=== PATIENT | female | born 1955 | race Caucasian/White ===

== ENCOUNTER 2018-07-06 14:50 | Emergency (ER) | payer MEDICARE ==
[2018-07-06] MEDS ORDERED: MOTRIN 600 MG PO ONE (15:18)
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
[2018-07-06] MEDS ORDERED: MOTRIN 600 MG ONE (15:28)
--- NOTE | 2018-07-06 15:59 | XRAY ---
Indication: Frontal temporal head injury following fall 1 week ago. Multiple contiguous axial images obtained through the head without contrast. Comparison: None Age-appropriate global atrophy and minimal periventricular degenerative micro-ischemia bilaterally. Left frontal lobe demonstrates a focus of encephalomalacia from old infarct. No acute intracranial hemorrhage, hydrocephalus, or mass effect. Bony calvarium intact. Visualized paranasal sinuses and mastoid air cells are clear. 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 CT DI 49.26
--- NOTE | 2018-07-06 16:04 | XRAY ---
Indication: Head injury following fall 1 week ago. Multiple contiguous axial images obtained through the cervical spine. Sagittal and coronal reformatted images obtained. Comparison: None Axial images negative for acute fracture, suspicious bony lesions, or spinal canal stenosis. Mild/moderate C5-C7 degenerative endplate spurring. Sagittal and coronal reformatted images demonstrates cervical lordotic straightening, positional versus paraspinal spasm. Mild C5-C7 disc space narrowing. No acute compression fracture, subluxation, or jumped facet. Normal appearing craniocervical junction. Visualized noncontrasted soft tissues demonstrates minimal carotid calcifications bilaterally. Lung apices clear. CT head reported separately. Impression: 1. Negative acute fracture/subluxation. Cervical lordotic straightening, positional versus paraspinal spasm. 2. C5-C7 degenerative changes. CT DI 60.30
[2018-07-06 16:16] VITALS: BP 198/86; PULSE 76; O2SAT 98
== END 2018-07-06 16:23 | disposition home or self-care (01) ==
LOC: ED 14:50
DX: S00.93XA Contusion of unspecified part of head, initial encounter (principal); R51 Headache; S16.1XXA Strain of muscle, fascia and tendon at neck level, initial encounter; M25.562 Pain in left knee; M54.2 Cervicalgia; W10.2XXA Fall (on)(from) incline, initial encounter; Y93.01 Activity, walking, marching and hiking; Y92.240 Courthouse as the place of occurrence of the external cause
CPT/HCPCS: 70450; 72125; 73562; 82962; 93005; 99284; A9270-GY

== ENCOUNTER 2018-08-30 19:10 | Emergency (ER) | payer MEDICARE ==
--- NOTE | 2018-08-30 19:37 | ERPHSYRPT ---
- History of Present Illness Time Seen by Provider: 08/30/18 19:37 Source: patient, family Patient Subjective Stated Complaint: c/o weakness, sob and unable to eat. Diarrhea, vomiting off and on for a week. Triage Nursing Assessment: pt brought back via wc, assisted to bed by 1, skin pink, warm dry, aeto x3, c/o weakness x 1 week, states, "I'm having trouble breathing", lungs clear throughout, abd soft, nontender, bs x4. Pt denies any pain. Physician History: 63 y/o obese white female with h/o copd presents with one week h/o weakness and mild soa. denies cp and denies abd pain. however, she has had a few episodes of n/v/d. never had this before. pt not eating or drinking well. Timing/Duration: week(s) (1) Severity: mild Associated Symptoms: nausea, vomiting, shortness of breath (mild chronic), loss of appetite, weakness, No chest pain Allergies/Adverse Reactions: No Known Drug Allergies Allergy (Verified 08/30/18 19:30) Hx Tetanus, Diphtheria Vaccination/Date Given: No Hx Influenza Vaccination/Date Given: Yes Hx Pneumococcal Vaccination/Date Given: No Immunizations Up to Date: Yes - Review of Systems Constitutional: Weakness Eyes: No Symptoms Ears, Nose, & Throat: No Symptoms Respiratory: No Symptoms, No Cough, No Dyspnea, No Stridor, No Wheezing Cardiac: No Symptoms, No Chest Pain, No Palpitations, No Syncope Abdominal/Gastrointestinal: Nausea, Vomiting, Diarrhea, Appetite Changes, No Abdominal Pain Genitourinary Symptoms: No Symptoms, No Dysuria, No Frequency, No Hematuria Musculoskeletal: No Symptoms Skin: No Symptoms Neurological: No Symptoms Psychological: No Symptoms Endocrine: No Symptoms Hematologic/Lymphatic: No Symptoms Immunological/Allergic: No Symptoms All Other Systems: Reviewed and Negative - Past Medical History Pertinent Past Medical History: Yes Neurological History: No Pertinent History ENT History: No Pertinent History Cardiac History: No Pertinent History Respiratory History: COPD Endocrine Medical History: No Pertinent History Musculoskeletal History: No Pertinent History GI Medical History: No Pertinent History History: No Pertinent History Psycho-Social History: No Pertinent History Female Reproductive Disorders: No Pertinent History Other Medical History: copd, - Past Surgical History Past Surgical History: Yes Neuro Surgical History: No Pertinent History Cardiac: No Pertinent History Respiratory: No Pertinent History Gastrointestinal: No Pertinent History Genitourinary: No Pertinent History Musculoskeletal: Joint Replacement Female Surgical History: Hysterectomy Other Surgical History: left knee. hysterectomy - Social History Smoking Status: Former smoker How long have you smoked: 20 Exposure to second hand smoke: No Drug Use: none Patient Lives Alone: No - Female History Hx Last Menstrual Period: 2001 Hx Now: No - Nursing Vital Signs Nursing Vital Signs: Initial Vital Signs Temperature 97.7 F 08/30/18 19:13 Pulse Rate 70 08/30/18 19:13 Respiratory Rate 20 08/30/18 19:13 Blood Pressure 186/81 08/30/18 19:13 O2 Sat by Pulse Oximetry 98 08/30/18 19:13 Pain Scale Pain Intensity 0 - Physical Exam General Appearance: no apparent distress, alert, anxiety Eye Exam: PERRL/EOMI Ears, Nose, Throat Exam: normal ENT inspection, moist mucous membranes Neck Exam: normal inspection, non-tender, supple, full range of motion Respiratory Exam: normal breath sounds, lungs clear, airway intact, No chest tenderness, No respiratory distress, No accessory muscle use, No rhonchi, No wheezing, No stridor Cardiovascular Exam: regular rate/rhythm, normal heart sounds, normal peripheral pulses Gastrointestinal/Abdomen Exam: soft, normal bowel sounds, No tenderness, No guarding, No rebound Pelvic Exam: not done Rectal Exam: not done Back Exam: normal inspection, normal range of motion, No CVA tenderness, No vertebral tenderness Extremity Exam: normal inspection, normal range of motion, pelvis stable Neurologic Exam: alert, oriented x 3, cooperative, personal injury specialist II-XII nml as tested Skin Exam: normal color, warm Lymphatic Exam: adenopathy SpO2 Interpretation: normal SpO2: 98 O2 Delivery: Room Air - Course Nursing assessment & vital signs reviewed: Yes EKG Interpreted by Me: RATE (62), Sinus Rhythm, NORMAL AXIS, NORMAL INTERVALS, Non-specific ST Changes, Other (comparison ekg 07/06/18 no changes.) Ordered Tests: Active Orders 24 hr Category Date Time Status ACCUCHECK [Accucheck] STAT Care 08/30/18 19:29 Active Dog License Officer Supervisor STAT Care 08/30/18 19:30 Active EKG-ER Only STAT Care 08/30/18 19:29 Active IV Insertion STAT Care 08/30/18 19:29 Active Pulse Oximetry (ED) STAT Care 08/30/18 19:44 Active CHEST 1 VIEW (PORTABLE) Stat Exams 08/30/18 20:19 Ordered CBC W DIFF Stat Lab 08/30/18 20:00 Completed CMP Stat Lab 08/30/18 20:00 Completed CULTURE,URINE Stat Lab 08/30/18 20:20 Received [place] Screen Stat Lab 08/30/18 20:00 Completed NT PRO BNP Stat Lab 08/30/18 20:00 Completed TROPONIN Q3H Lab 08/30/18 20:00 Completed TROPONIN Q3H Lab 08/30/18 22:45 Ordered TROPONIN Q3H Lab 08/31/18 01:45 Ordered TROPONIN Q3H Lab 08/31/18 04:45 Ordered TROPONIN Q3H Lab 08/31/18 07:45 Ordered UA W/RFX UR CULTURE Stat Lab 08/30/18 20:20 Completed Medication Summary Generic Name Dose Route Start Last Admin Trade Name Freq PRN Reason Stop Dose Admin Ceftriaxone Sodium/Dextrose 1 g in 50 mls @ 100 mls/hr 08/30/18 20:58 Rocephin 1 Gm-D5w 50 Ml Bag IV 08/30/18 21:27 STAT STA Discontinued Medications Generic Name Dose Route Start Last Admin Trade Name Freq PRN Reason Stop Dose Admin Sodium Chloride 1,000 mls @ 999 mls/hr 08/30/18 19:44 08/30/18 20:52 Sodium Chloride 0.9% 1000 Ml IV 08/30/18 20:44 Infused .Q1H1M STA Infusion Sodium Chloride Confirm 08/30/18 19:48 Sodium Chloride 0.9% 1000 Ml Administered 08/30/18 19:49 Dose 1,000 mls @ ud .ROUTE .K-MED ONE Lab/Rad Data: Laboratory Result Diagrams 08/30/18 20:00 08/30/18 20:00 Laboratory Results 08/30/18 08/30/18 08/30/18 Range/Units 20:20 20:00 20:00 WBC (4.0-10.5) K/mm3 RBC (4.1-5.4) M/mm3 Hgb (12.0-16.0) gm/dl Hct (35-47) % MCV (78-100) fl MCH (26-32) pg MCHC (32-36) g/dl RDW (11.5-14.0) % Plt Count (150-450) K/mm3 MPV (6-9.5) fl Gran % (36.0-66.0) % Eos # (Auto) (0-0.5) Absolute Lymphs (auto) (1.0-4.6) Absolute Monos (auto) (0.0-1.3) Lymphocytes % (24.0-44.0) % Monocytes % (0.0-12.0) % Eosinophils % (0.00-5.0) % Basophils % (0.0-0.4) % Absolute Granulocytes (1.4-6.9) Basophils # (0-0.4) Sodium (137-145) mmol/L Potassium (3.5-5.1) mmol/L Chloride (98-107) mmol/L Carbon Dioxide (22-30) mmol/L Anion Gap (5-15) MEQ/L BUN (7-17) mg/dL Creatinine (0.52-1.04) mg/dL Estimated GFR ML/MIN Glucose (74-106) mg/dL Calcium (8.4-10.2) mg/dL Total Bilirubin (0.2-1.3) mg/dL AST (14-36) U/L ALT (0-35) U/L Alkaline Phosphatase (38-126) U/L Troponin I < 0.012 (0.000-0.034) ng/mL NT-Pro-B Natriuret Pep (0-900) pg/mL Serum Total Protein (6.3-8.2) g/dL Albumin (3.5-5.0) g/dL Urine Color STRAW (YELLOW) Urine Appearance CLEAR (CLEAR) Urine pH 6.0 (5-6) Ur Specific [place] 1.014 (1.005-1.025) Urine Protein NEGATIVE (Negative) Urine Ketones NEGATIVE (NEGATIVE) Urine Blood NEGATIVE (0-5) Markie/ul Urine Nitrite NEGATIVE (NEGATIVE) Urine Bilirubin NEGATIVE (NEGATIVE) Urine Urobilinogen NEGATIVE (0-1) mg/dL Ur Leukocyte Esterase MODERATE (NEGATIVE) Urine WBC (Auto) 26-50 (0-5) /HPF Urine RBC (Auto) 3-5 (0-2) /HPF U Epithel Cells (Auto) FEW (FEW) /HPF Urine Bacteria (Auto) MODERATE (NEGATIVE) /HPF Urine Culture Reflexed YES (NO) Urine Glucose NEGATIVE (NEGATIVE) mg/dL Monoscreen NEGATIVE (Negative) 08/30/18 08/30/18 Range/Units 20:00 20:00 WBC 9.1 (4.0-10.5) K/mm3 RBC 4.20 (4.1-5.4) M/mm3 Hgb 12.6 (12.0-16.0) gm/dl Hct 39.8 (35-47) % MCV 94.8 (78-100) fl MCH 30.0 (26-32) pg MCHC 31.7 L (32-36) g/dl RDW 13.9 (11.5-14.0) % Plt Count 212 (150-450) K/mm3 MPV 9.8 H (6-9.5) fl Gran % 53.6 (36.0-66.0) % Eos # (Auto) 0.06 (0-0.5) Absolute Lymphs (auto) 3.35 (1.0-4.6) Absolute Monos (auto) 0.75 (0.0-1.3) Lymphocytes % 37.0 (24.0-44.0) % Monocytes % 8.3 (0.0-12.0) % Eosinophils % 0.7 (0.00-5.0) % Basophils % 0.4 (0.0-0.4) % Absolute Granulocytes 4.86 (1.4-6.9) Basophils # 0.04 (0-0.4) Sodium 141 (137-145) mmol/L Potassium 4.3 (3.5-5.1) mmol/L Chloride 105 (98-107) mmol/L Carbon Dioxide 29 (22-30) mmol/L Anion Gap 11.9 (5-15) MEQ/L BUN 14 (7-17) mg/dL Creatinine 0.90 (0.52-1.04) mg/dL Estimated GFR > 60.0 ML/MIN Glucose 96 (74-106) mg/dL Calcium 8.6 (8.4-10.2) mg/dL Total Bilirubin 0.30 (0.2-1.3) mg/dL AST 17 (14-36) U/L ALT 23 (0-35) U/L Alkaline Phosphatase 97 (38-126) U/L Troponin I (0.000-0.034) ng/mL NT-Pro-B Natriuret Pep 533 (0-900) pg/mL Serum Total Protein 6.2 L (6.3-8.2) g/dL Albumin 3.5 (3.5-5.0) g/dL Urine Color (YELLOW) Urine Appearance (CLEAR) Urine pH (5-6) Ur Specific [place] (1.005-1.025) Urine Protein (Negative) Urine Ketones (NEGATIVE) Urine Blood (0-5) Markie/ul Urine Nitrite (NEGATIVE) Urine Bilirubin (NEGATIVE) Urine Urobilinogen (0-1) mg/dL Ur Leukocyte Esterase (NEGATIVE) Urine WBC (Auto) (0-5) /HPF Urine RBC (Auto) (0-2) /HPF U Epithel Cells (Auto) (FEW) /HPF Urine Bacteria (Auto) (NEGATIVE) /HPF Urine Culture Reflexed (NO) Urine Glucose (NEGATIVE) mg/dL Monoscreen (Negative) - Progress Progress: improved Counseled pt/family regarding: lab results, diagnosis, need for follow-up, rad results - Departure Time of Disposition: 21:00 Departure Disposition: Home Clinical Impression: UTI (urinary tract infection), Diarrhea, Colitis Condition: Stable Critical Care Time: No Referrals: MARY MAYS MD [Primary Care Provider] - Additional Instructions: drink plenty of fluid. take medications as prescribed. follow up with primary doctor for further management Prescriptions: Ciprofloxacin [Cipro 500 MG] 500 mg PO BID #14 tablet Metronidazole 500 mg [Flagyl 500 MG] 500 mg PO TID #21 tablet Ondansetron HCl [Zofran] 4 mg PO TID PRN #10 tablet PRN Reason: Nausea/Vomiting
[2018-08-30] MEDS ORDERED: Sodium Chloride 0.9% 1000 ML 1,000 ML IV STA (19:44)
[2018-08-30] MEDS ORDERED: Sodium Chloride 0.9% 1000 ML 1,000 ML ONE (19:48)
[2018-08-30 20:05] LABS: BASOPHIL % 0.4 % (0.0-0.4); Basophil (Absolute #) 0.04 (0-0.4); Eosinophil % 0.7 % (0.00-5.0); Eosinophil (Absolute #) 0.06 (0-0.5); Granulocyte Absolute (ANC) 4.86 (1.4-6.9); Granulocytes % 53.6 % (36.0-66.0); Hematocrit 39.8 % (35-47); Hemoglobin 12.6 gm/dl (12.0-16.0); Lymphocyte (Absolute #) 3.35 (1.0-4.6); Mean Cell Volume 94.8 fl (78-100); Mean Corpuscular Hgb Concent. 31.7 g/dl (32-36); Mean Platelet Volume 9.8 fl (6-9.5); Monocyte (Absolute #) 0.75 (0.0-1.3); Monocytes % 8.3 % (0.0-12.0); Platelet Count 212 K/mm3 (150-450); Red Cell Distribution Width 13.9 % (11.5-14.0); White Blood Count 9.1 K/mm3 (4.0-10.5)
[2018-08-30 20:36] LABS: ALBUMIN 3.5 g/dL (3.5-5.0); ALKALINE PHOSPHATASE 97 U/L (38-126); ANION GAP 11.9 MEQ/L (5-15); BLOOD UREA NITROGEN 14 mg/dL (7-17); CHLORIDE 105 mmol/L (98-107); Calcium 8.6 mg/dL (8.4-10.2); Carbon Dioxide 29 mmol/L (22-30); Glucose 96 mg/dL (74-106); NT PRO BNP 533 pg/mL (0-900); Potassium 4.3 mmol/L (3.5-5.1); SGOT/AST 17 U/L (14-36); SGPT/ALT 23 U/L (0-35); SODIUM 141 mmol/L (137-145); Total Protein 6.2 g/dL (6.3-8.2)
[2018-08-30 20:48] LABS: Appearance CLEAR (CLEAR); Bacteria MODERATE /HPF (NEGATIVE); Bilirubin NEGATIVE (NEGATIVE); Blood NEGATIVE Ery/ul (0-5); Epithelial Cells FEW /HPF (FEW); Glucose NEGATIVE (NEGATIVE); Ketones NEGATIVE (NEGATIVE); Leukocyte Esterase MODERATE (NEGATIVE); Nitrite NEGATIVE (NEGATIVE); Protein,Urine Dip NEGATIVE (Negative); Specific Gravity 1.014 (1.005-1.025); Urobilinogen NEGATIVE mg/dL (0-1); WBC 26-50 /HPF (0-5)
[2018-08-30] MEDS ORDERED: ROCEPHIN 1 Gm-D5w 50 ml Bag** 1 G/50 ML IVPB IV STA (20:58)
[2018-08-30 20:59] VITALS: BP 163/73; PULSE 62
[2018-08-30] MEDS ORDERED: ROCEPHIN 1 Gm-D5w 50 ml Bag** 1 G/50 ML IVPB IV ONE (20:59)
[2018-08-30 21:04] VITALS: O2SAT 98
[2018-08-30 21:07] LABS: INFLUENZA A NEGATIVE (NEGATIVE); INFLUENZA B NEGATIVE (NEGATIVE); RESPIRATORY SYNCTIAL VIRUS NEGATIVE (Negative)
--- NOTE | 2018-08-31 08:53 | XRAY ---
Indication: Short of breath. Comparison: None Portable chest slightly underinflated and clear with incidental right hilar calcified nodes. Heart is borderline enlarged probably from under inflation. Bony thorax intact with mild degenerative changes. Impression: Nonacute underinflated chest with chronic features.
== END 2018-08-30 21:32 | disposition home or self-care (01) ==
LOC: ED 19:10
DX: N39.0 Urinary tract infection, site not specified (principal); K52.9 Noninfective gastroenteritis and colitis, unspecified; R11.2 Nausea with vomiting, unspecified; J44.9 Chronic obstructive pulmonary disease, unspecified; R53.1 Weakness
CPT/HCPCS: 36000; 36415; 71045; 80053; 81001; 82962; 83880; 84484; 85025; 86308; 87086; 87631; 93005; 93041; 96360; 96365; 99284; J0696

== ENCOUNTER 2018-12-14 15:53 | Emergency (ER) | payer MEDICARE ==
--- NOTE | 2018-12-14 16:32 | ERPHSYRPT ---
- History of Present Illness Time Seen by Provider: 12/14/18 16:19 Source: patient Exam Limitations: no limitations Patient Subjective Stated Complaint: pt reports short fall from standing last evening, states she stood up from the dinner table and the chair fell out from behind her causing her to fall and strike her head on the laminate tomás. pt believes she may have passed out briefly. pt reports pain to the hip, occiptal region of the head, right shoulder. pt reports she is unable to walk. Triage Nursing Assessment: pt is aox3, pt answers all questions appropriately, pt is able to undress herself without difficulty, afebrile, pupils perrl, resps easy and non labored, radial pulses strong and equal, cap refill < 3 seconds, bruising noted to the left buttock, skin is intact. no other obvious injury or deformity it noted. sensation is intact, ROM normal. pt moves all extremities. skin pink warm dry. Physician History: 63-year-old white female with history of COPD Arrives with complaints of feeling dizzy she states that she fell yesterday hit her head after chair rolled out from behind her she states she also landed on her buttocks and is having bilateral hip pain. No shortness of breath no chest pain she states her knees hurt. Past medical history includes COPD past surgical history includes left knee replacement and hysterectomy. Timing/Duration: yesterday Severity: moderate Modifying Factors: Improves With: nothing Associated Symptoms: other (hit head dizzy), No nausea, No vomiting, No abdominal pain, No shortness of breath, No heartburn, No diaphoresis, No cough, No chills, No chest pain, No fever, No headaches, No loss of appetite, No syncope, No seizure, No weakness Allergies/Adverse Reactions: No Known Drug Allergies Allergy (Verified 12/14/18 16:15) Hx Tetanus, Diphtheria Vaccination/Date Given: No Hx Influenza Vaccination/Date Given: No Hx Pneumococcal Vaccination/Date Given: No Immunizations Up to Date: Yes - Review of Systems Constitutional: No Fever, No Chills Eyes: No Symptoms Ears, Nose, & Throat: No Symptoms Respiratory: No Cough, No Dyspnea Cardiac: No Chest Pain, No Edema, No Syncope Abdominal/Gastrointestinal: No Abdominal Pain, No Nausea, No Vomiting, No Diarrhea Genitourinary Symptoms: No Dysuria Musculoskeletal: Other (bilateral hip pain) Skin: No Rash Neurological: Dizziness, Other (patient fell and hit her head yesterday questionable loss of consciousness), No Focal Weakness, No Gait Changes, No Headache, No Irritability, No Lethargy, No Paralysis, No Parasthesia, No Seizure , No Sensory Changes, No Speech Changes, No Tics, No Tremors, No Vertigo Psychological: No Symptoms Endocrine: No Symptoms All Other Systems: Reviewed and Negative - Past Medical History Pertinent Past Medical History: Yes Neurological History: No Pertinent History ENT History: No Pertinent History Cardiac History: No Pertinent History Respiratory History: COPD Endocrine Medical History: No Pertinent History Musculoskeletal History: No Pertinent History GI Medical History: No Pertinent History History: No Pertinent History Psycho-Social History: No Pertinent History Female Reproductive Disorders: No Pertinent History Other Medical History: copd, - Past Surgical History Past Surgical History: Yes Neuro Surgical History: No Pertinent History Cardiac: No Pertinent History Respiratory: No Pertinent History Gastrointestinal: No Pertinent History Genitourinary: No Pertinent History Musculoskeletal: Joint Replacement Female Surgical History: Hysterectomy Other Surgical History: left knee. hysterectomy - Social History Smoking Status: Former smoker How long have you smoked: 20 Exposure to second hand smoke: No Drug Use: none Patient Lives Alone: No - Female History Hx Now: No - Nursing Vital Signs Nursing Vital Signs: Initial Vital Signs Temperature 97.9 F 12/14/18 16:04 Pulse Rate 67 12/14/18 16:04 Respiratory Rate 20 12/14/18 16:04 Blood Pressure 159/68 12/14/18 16:04 O2 Sat by Pulse Oximetry 98 12/14/18 16:04 Pain Scale Pain Intensity 10 - Physical Exam General Appearance: no apparent distress, alert, other Eye Exam: PERRL/EOMI, eyes nml inspection Ears, Nose, Throat Exam: normal ENT inspection, TMs normal, pharynx normal, moist mucous membranes Neck Exam: normal inspection, non-tender, supple, full range of motion Respiratory Exam: normal breath sounds, lungs clear, No respiratory distress Cardiovascular Exam: regular rate/rhythm, normal heart sounds, normal peripheral pulses, capillary refill <2 sec Gastrointestinal/Abdomen Exam: soft, normal bowel sounds, No tenderness, No mass Back Exam: normal inspection, normal range of motion, No CVA tenderness, No vertebral tenderness Extremity Exam: other (posterior hips tender with palpation, full range of motion both knees. aable to flex both knees and externally and internally rotate both. Full range of motion of her TMJs) Neurologic Exam: alert, oriented x 3, cooperative, office service coordinator II-XII nml as tested, normal mood/affect, nml cerebellar function, nml station & gait, sensation nml, No motor deficits Skin Exam: normal color, warm, dry, No rash Lymphatic Exam: No adenopathy SpO2 Interpretation: normal (98%) SpO2: 98 - Course Nursing assessment & vital signs reviewed: Yes EKG Interpreted by Me: RATE (60 bpm), Sinus Rhythm, NORMAL AXIS, Other (EKG: Sinus rhythm, 60 beats per minute, normal axis, no acute ST or T wave changes) - CT Exams Cervical Spine CT Interpretation: Tele-radiologist Report (CT cervical spine: Impression: No acute cervical spine fracture or other acute traumatic CT pathology) Head CT Interpretation: Tele-radiologist Report (CT head: Impression: 1. Stable age related diffuse cerebral volume loss and chronic microvascular ischemic disease. Stable encephalomalacia in the left frontal lobe which may be due to chronic infarct or trauma2 no acute intracranial pathology.) Ordered Tests: Active Orders 24 hr Category Date Time Status EKG-ER Only STAT Care 12/14/18 16:35 Active IV Insertion STAT Care 12/14/18 16:35 Active CERVICAL SPINE WO CONTRAST [CT] Stat Exams 12/14/18 16:27 Taken HEAD WITHOUT CONTRAST [CT] Stat Exams 12/14/18 16:27 Taken PELVIS (1 OR 2 VIEWS) Stat Exams 12/14/18 16:27 Taken CBC W DIFF Stat Lab 12/14/18 16:30 Completed CMP Stat Lab 12/14/18 16:30 Completed UA W/RFX UR CULTURE Stat Lab 12/14/18 17:15 Completed Lab/Rad Data: Laboratory Result Diagrams 12/14/18 16:30 12/14/18 16:30 Laboratory Results 12/14/18 12/14/18 12/14/18 Range/Units 17:15 16:30 16:30 WBC 10.2 (4.0-10.5) K/mm3 RBC 4.63 (4.1-5.4) M/mm3 Hgb 13.4 (12.0-16.0) gm/dl Hct 42.0 (35-47) % MCV 90.7 (78-100) fl MCH 28.9 (26-32) pg MCHC 31.9 L (32-36) g/dl RDW 13.6 (11.5-14.0) % Plt Count 176 (150-450) K/mm3 MPV 10.5 H (6-9.5) fl Gran % 64.2 (36.0-66.0) % Eos # (Auto) 0.06 (0-0.5) Absolute Lymphs (auto) 2.83 (1.0-4.6) Absolute Monos (auto) 0.72 (0.0-1.3) Lymphocytes % 27.9 (24.0-44.0) % Monocytes % 7.1 (0.0-12.0) % Eosinophils % 0.6 (0.00-5.0) % Basophils % 0.2 (0.0-0.4) % Absolute Granulocytes 6.53 (1.4-6.9) Basophils # 0.02 (0-0.4) Sodium 138 (137-145) mmol/L Potassium 4.8 (3.5-5.1) mmol/L Chloride 104 (98-107) mmol/L Carbon Dioxide 25 (22-30) mmol/L Anion Gap 13.5 (5-15) MEQ/L BUN 28 H (7-17) mg/dL Creatinine 0.82 (0.52-1.04) mg/dL Estimated GFR > 60.0 ML/MIN Glucose 122 H (74-106) mg/dL Calcium 8.8 (8.4-10.2) mg/dL Total Bilirubin 0.50 (0.2-1.3) mg/dL AST 25 (14-36) U/L ALT 16 (0-35) U/L Alkaline Phosphatase 83 (38-126) U/L Serum Total Protein 6.7 (6.3-8.2) g/dL Albumin 3.5 (3.5-5.0) g/dL Urine Color STRAW (YELLOW) Urine Appearance CLEAR (CLEAR) Urine pH 5.0 (5-6) Ur Specific [place] 1.005 (1.005-1.025) Urine Protein NEGATIVE (Negative) Urine Ketones NEGATIVE (NEGATIVE) Urine Blood SMALL (0-5) Markie/ul Urine Nitrite NEGATIVE (NEGATIVE) Urine Bilirubin NEGATIVE (NEGATIVE) Urine Urobilinogen NEGATIVE (0-1) mg/dL Ur Leukocyte Esterase NEGATIVE (NEGATIVE) Urine WBC (Auto) 0-2 (0-5) /HPF Urine RBC (Auto) NONE (0-2) /HPF U Epithel Cells (Auto) RARE (FEW) /HPF Urine Bacteria (Auto) NONE (NEGATIVE) /HPF Urine Culture Reflexed NO (NO) Urine Glucose NEGATIVE (NEGATIVE) mg/dL - Progress Progress: improved Progress Note: 12/14/18 18:13 63-year-old white female arrives with complaint of dizziness and pain in her of bilateral posterior hips after falling and hitting her head yesterday. She does state that she has some needs pain however her knees are stable to examination and full range of motion. Patient is asking for a knee brace will go ahead and provide this. Patient with normal labs, which include CBC CMP and urinalysis Patient's head CT impression stable AIDS-related diffuse cerebral volume loss and chronic microvascular ischemic disease stable encephalomalacia in her left frontal lobe which may be due to chronic infarct or trauma (old)) Patient with no acute intracranial pathology. Patient with CT of the C-spine remarkable for no cervical spine fractures or other acute traumatic CT pathology. Patient does not appear to be in acute distress will give patient Motrin 600 mg orally. Will plan to discharge patient she is to take Tylenol every 4 hours or Motrin every 6 hours as needed for pain and followup with her family - Departure Departure Disposition: Home Clinical Impression: Dizziness, Bilateral hip pain Accidental fall Qualifiers: Encounter type: initial encounter Qualified Code(s): W19.XXXA - Unspecified fall, initial encounter Head contusion Qualifiers: Encounter type: initial encounter Contusion of head detail: unspecified part of head Qualified Code(s): S00.93XA - Contusion of unspecified part of head, initial encounter Left knee pain Qualifiers: Chronicity: unspecified Qualified Code(s): M25.562 - Pain in left knee Condition: Fair Critical Care Time: No Referrals: MARY MAYS MD [Primary Care Provider] - Instructions: Contusion (DC), Preventing Falls Additional Instructions: Return home. Tylenol every 4 hours or Motrin every 6 hours as needed for pain. Plenty of fluids. Followup with your family . Return for acute distress or for severe symptoms.
[2018-12-14 16:46] LABS: BASOPHIL % 0.2 % (0.0-0.4); Basophil (Absolute #) 0.02 (0-0.4); Eosinophil % 0.6 % (0.00-5.0); Eosinophil (Absolute #) 0.06 (0-0.5); Granulocyte Absolute (ANC) 6.53 (1.4-6.9); Granulocytes % 64.2 % (36.0-66.0); Hemoglobin 13.4 gm/dl (12.0-16.0); Lymphocyte (Absolute #) 2.83 (1.0-4.6); Lymphocytes % 27.9 % (24.0-44.0); Mean Cell Volume 90.7 fl (78-100); Mean Corpuscular Hemoglobin 28.9 pg (26-32); Mean Corpuscular Hgb Concent. 31.9 g/dl (32-36); Mean Platelet Volume 10.5 fl (6-9.5); Monocyte (Absolute #) 0.72 (0.0-1.3); Monocytes % 7.1 % (0.0-12.0); Platelet Count 176 K/mm3 (150-450); Red Blood Count 4.63 M/mm3 (4.1-5.4); Red Cell Distribution Width 13.6 % (11.5-14.0); White Blood Count 10.2 K/mm3 (4.0-10.5)
[2018-12-14 16:50] LABS: ALBUMIN 3.5 g/dL (3.5-5.0); ALKALINE PHOSPHATASE 83 U/L (38-126); ANION GAP 13.5 MEQ/L (5-15); BLOOD UREA NITROGEN 28 mg/dL (7-17); CHLORIDE 104 mmol/L (98-107); Calcium 8.8 mg/dL (8.4-10.2); Carbon Dioxide 25 mmol/L (22-30); Creatinine 1 0.82 mg/dL (0.52-1.04); Glucose 122 mg/dL (74-106); Potassium 4.8 mmol/L (3.5-5.1); SGOT/AST 25 U/L (14-36); SGPT/ALT 16 U/L (0-35); SODIUM 138 mmol/L (137-145); Total Protein 6.7 g/dL (6.3-8.2)
[2018-12-14 17:26] LABS: Appearance CLEAR (CLEAR); Bilirubin NEGATIVE (NEGATIVE); Blood SMALL Ery/ul (0-5); Epithelial Cells RARE /HPF (FEW); Glucose NEGATIVE (NEGATIVE); Ketones NEGATIVE (NEGATIVE); Leukocyte Esterase NEGATIVE (NEGATIVE); Nitrite NEGATIVE (NEGATIVE); Protein,Urine Dip NEGATIVE (Negative); Specific Gravity 1.005 (1.005-1.025); Urobilinogen NEGATIVE mg/dL (0-1); WBC 0-2 /HPF (0-5)
[2018-12-14 18:10] VITALS: O2SAT 98
[2018-12-14] MEDS ORDERED: MOTRIN 600 MG PO ONE (18:19)
[2018-12-14] MEDS ORDERED: MOTRIN 600 MG ONE (18:49)
[2018-12-14 19:00] VITALS: BP 135/90; PULSE 60
--- NOTE | 2018-12-15 00:42 | XRAY ---
Exam: CT of the head without IV contrast from 12/14/2018. CTDI: 49.71 Comparison: CT of the head without IV contrast from 07/06/2018. Indication: 63-year-old female who fell and hit head, complains of head pain and dizziness. Technique: Non-IV contrast axial images were obtained through the brain. Reconstructed coronal and sagittal images were created and reviewed. Findings: The ventricles appear of unremarkable size for age. No focal mass effect or midline shift is seen. No acute intracranial bleed or abnormal extra-axial fluid collection is seen. Subtle small vessel microvascular changes are seen within the white matter. There is some focal encephalomalacia within the left frontal lobe which is unchanged from 07/06/2018 and is likely due to an old infarct or chronic changes from remote trauma. Correlate clinically. The cortical sulci and basilar cisterns appear unremarkable for age. The calvarium of the skull appears intact without fracture. The visualized paranasal sinuses and mastoid air cells appear clear. Some atherosclerotic vascular calcification is seen within the distal internal carotid arteries. Impression: 1. There is a chronic focal area of encephalomalacia within the left frontal lobe which is unchanged from 07/06/2018 and is likely due to an old infarct or chronic changes from remote trauma. Correlate clinically. 2. No acute intracranial bleed or other acute intracranial process is seen.
--- NOTE | 2018-12-15 01:09 | XRAY ---
Exam: CT of the cervical spine without IV contrast from 12/14/2018. CTDI: 68.70 Comparison: CT of the cervical spine without IV contrast from 07/06/2018. Indication: 63-year-old female fell striking head and was unconscious, now complains of dizziness and neck pain. Technique: Non-IV contrast axial images were obtained through the cervical spine. Reconstructed coronal and sagittal images were created and reviewed. Findings: I see no acute cervical spine fracture, AP traumatic subluxation, or prevertebral soft tissue swelling. There is some straightening of the cervical spine on the sagittal images which may relate to patient positioning or spasm. There is mild degenerative disc disease at both C5-C6 and C6-C7 manifested by mild intervertebral disc space narrowing and anterior and posterior vertebral endplate spurring. This is unchanged. There is increase CTwithin the lower cervical spine due to the patient's shoulders being in this projection. I cannot exclude a moderate sized posterior disc bulge or protrusion at C5-C6. In retrospect, I believe this is unchanged. I suspect moderate central canal spinal stenosis at C5-C6. Mild facet joint arthropathy is seen at C7-T1 on the left. I also note some uncovertebral joint spurring bilaterally at C4-C5, C5-C6, and C6-C7. This is unchanged. The C1-C2 relationship appears unremarkable. Degenerative change of the preodontoid space is seen. I believe there is mild to moderate narrowing of the C5-C6 and C6-C7 neural foramen bilaterally. Impression: 1. I see no new acute cervical spine fracture, AP subluxation, or prevertebral soft tissue swelling. 2. Degenerative disc disease at C5-C6 and C6-C7 is again seen. I also note uncovertebral joint spurring/osteoarthritis at C4-C5, C5-C6, and C6-C7 bilaterally representing no change. Some facet joint osteoarthritis is seen at C7-T1 on the left representing no change. 3. Increased CT noise makes assessment of the soft tissue structures on the sagittal images somewhat difficult, but it appears there may be a moderate sized posterior disc bulge or protrusion at C5-C6 which causes moderate compromise of the AP diameter of the spinal sac in the midline. In retrospect, I believe this is unchanged from 07/06/2018. Consider further evaluation with MRI of the cervical spine. 4. There is also mild to moderate narrowing of the C5-C6 and C6-C7 neural foramen bilaterally representing no significant change.
--- NOTE | 2018-12-15 08:43 | XRAY ---
Indication: Pain following fall. Comparison: None Single AP pelvis demonstrates old pubic symphysis fracture, minimal degenerative spondylosis lower lumbar spine, and pelvic phleboliths. No other bony, articular, or soft tissue abnormalities.
== END 2018-12-14 19:01 | disposition home or self-care (01) ==
LOC: ED 15:53
DX: R42 Dizziness and giddiness (principal); M25.552 Pain in left hip; M25.551 Pain in right hip; S00.93XA Contusion of unspecified part of head, initial encounter; M25.562 Pain in left knee; W01.198A Fall on same level from slipping, tripping and stumbling with subsequent striking against other object, initial encounter; Y92.008 Other place in unspecified non-institutional (private) residence as the place of occurrence of the external cause
CPT/HCPCS: 36000; 36415; 70450; 72125; 72170; 80053; 81001; 85025; 93005; 99284; L1830; A9270-GY